=== PATIENT | female | born 1990 | race Caucasian/White ===

== ENCOUNTER → 2019-06-03 | Outpatient (CLI) | payer OTHER | END | disposition home or self-care (01) | LOC: CFH 12:24 | PROVIDERS: ATTEND Nurse Practitioner Psychiatric/Mental Health | CPT/HCPCS: 76856 ==

== ENCOUNTER 2019-06-04 07:40 | Outpatient (CLI) | payer OTHER ==
[2019-06-04] MEDS ORDERED: OMNIPAQUE 350 MG/ML, 100ML BOTTLE ONE (15:00)
== END 2019-06-04 23:59 | disposition home or self-care (01) ==
LOC: CFH 07:40
PROVIDERS: ATTEND Nurse Practitioner Psychiatric/Mental Health
DX: N28.1 Cyst of kidney, acquired (principal)
CPT/HCPCS: 74170; Q9967